=== PATIENT | male | born 1975 | race Caucasian/White ===

== ENCOUNTER 2019-10-28 05:09 | Emergency (ER) | payer OTHER ==
[~2019-10-28] VITALS: Ht 170.2 cm; Wt 65.8 kg
[2019-10-28 06:08] LABS: CALCIUM 9.2 mg/dL (8.5-10.1); CREATININE 0.9 mg/dL (0.7-1.3); POTASSIUM 3.9 mmol/L (3.5-5.1)
[2019-10-28 06:10] LABS: ABSOLUTE NEUTROPHILS 7.6 thou/uL (1.4-8.2); BASOPHILS 0.6 % (0.0-2.0); HEMATOCRIT 42.8 % (42.0-52.0); HEMOGLOBIN 14.1 gm/dL (14.0-18.0); LYMPHOCYTES 15.1 % (24.0-44.0); MCH 29.7 pg (26.0-34.0); MCHC 33.1 g/dL (28.0-37.0); MCV 89.8 fL (80.0-100.0); MONOCYTES 5.1 % (1.0-8.0); PLATELET COUNT 286 thou/uL (150-400); POLYS 78.2 % (36.0-66.0); RBC 4.76 mil/uL (4.50-6.00); RDW 13.4 % (10.5-14.5); WBC 9.7 thou/uL (4.0-11.0)
[2019-10-28 06:14] LABS: ALBUMIN 3.8 g/dL (3.4-5.0); DIRECT BILIRUBIN 0.1 mg/dL (<0.1-0.2); TOTAL PROTEIN 8.1 g/dL (6.4-8.2)
[2019-10-28 07:53] VITALS: BP 104/57
== END 2019-10-28 07:56 | disposition home or self-care (01) ==
LOC: ER 05:09
PROVIDERS: Emergency Medicine
DX: F10.129 Alcohol abuse with intoxication, unspecified (principal); F17.210 Nicotine dependence, cigarettes, uncomplicated; Y90.6 Blood alcohol level of 120-199 mg/100 ml